=== PATIENT | male | born 1960 | race Caucasian/White ===

== ENCOUNTER 2016-03-22 18:39 | Observation (INO) | payer MEDICAID, OTHER ==
[~2016-03-22] VITALS: Ht 162.6 cm; Wt 90.8 kg
--- NOTE | 2016-03-22 18:55 | ERA ---
ER Documentation Chief Complaint Date/Time DATE: 03/22/16 TIME: 18:54 Chief Complaint pt tried to get out of bed and fainted at home HPI The patient is a 56-year-old male, presenting to the ER because of fainting when he tried to get enough from his bed at about 6:30 PM. He denies headache, blurred vision, diplopia, facial pain, neck, chest pain, dyspnea, abdominal pain , vomiting. He complains of subjective fever this morning, intermittent cough for more than a month. He denies neck pain, chest pain, palpitation. He denies smoking, drinking Past medical history: Hypertension, dyslipidemia, diabetes mellitus Past surgical history: None ROS All systems reviewed and are negative except as per history of present illness. Medications Home Meds Reported Medications Allopurinol* (Allopurinol*) 300 Mg Tablet, 300 MG PO DAILY, TAB 03/22/16 Glipizide* (Glipizide*) 10 Mg Tablet, 10 MG PO AC BREAKFAST DINNER, TAB 03/22/16 Aspirin* (Aspirin* EC) 81 Mg Tablet.dr, 81 MG PO DAILY, TAB 03/22/16 Linagliptin (TRADJENTA) 5 Mg Tablet, 5 MG PO DAILY, TAB 03/22/16 Benazepril Hcl* (Benazepril Hcl*) 40 Mg Tablet, 40 MG PO DAILY, #30 TAB 03/22/16 Gemfibrozil* (Gemfibrozil*) 600 Mg Tablet, 600 MG PO BID, TAB 03/22/16 Allergies Allergies: Coded Allergies: No Known Allergy (Unverified , 03/22/16) Physical Exam Vitals Vital Signs Date Time Temp Pulse Resp B/P Pulse Ox O2 Delivery O2 Flow Rate FiO2 03/22/16 20:11 85 18 130/81 Room Air 03/22/16 18:47 100.1 77 20 64/43 96 Physical Exam Const: No acute distress. Dehydrated Head: Atraumatic. Eyes: Normal Conjunctiva. ENT: Normal External Ears, Nose and Mouth. Bilateral tympanic membranes and oropharynx are within normal limit Neck: Full range of motion. No meningismus. Resp: Clear to auscultation bilaterally. Cardio: Regular rate and rhythm, no murmurs. Abd: Soft, non distended, normal bowel sounds, non tender. Skin: No petechiae or rashes. Back: No midline or flank tenderness. Ext: No cyanosis, or edema. Neur: Awake and alert. No focal deficit Psych: Normal Mood and Affect. Result Diagram: 03/22/16194403/22/161944 Results 24 hrs Laboratory Tests Test 03/22/16 19:45 03/22/16 19:53 Activated Partial Thromboplast Time 26.5Sec Alanine Aminotransferase (ALT/SGPT) 42IU/L Albumin 4.4g/dl Albumin/Globulin Ratio 1.33 Alkaline Phosphatase 91IU/L Anion Gap 19 Aspartate Amino Transf (AST/SGOT) 27IU/L Basophils # 0.010^3/ul Basophils % 0.2% Blood Morphology Comment Blood Urea Nitrogen 21mg/dl Calcium Level 9.1mg/dl Carbon Dioxide Level 25mmol/L Chloride Level 97mmol/L Creatinine 1.25mg/dl Direct Bilirubin 0.00mg/dl Eosinophils # 0.110^3/ul Eosinophils % 1.4% Globulin 3.30g/dl Glucose Level 208mg/dl Hematocrit 40.2% Hemoglobin 13.6g/dl INR International Normalized Ratio 1.02 Indirect Bilirubin 0.2mg/dl Lactic Acid Level 1.5mmol/L Lymphocytes # 1.110^3/ul Lymphocytes % 11.4% Mean Corpuscular Hemoglobin 28.6pg Mean Corpuscular Hemoglobin Concent 33.9g/dl Mean Corpuscular Volume 84.3fl Mean Platelet Volume 8.2fl Monocytes # 0.810^3/ul Monocytes % 8.3% Neutrophils # 7.210^3/ul Neutrophils % 78.7% Nucleated Red Blood Cells # 0.010^3/ul Nucleated Red Blood Cells % 0.0/100WBC Platelet Count 62633^3/UL Potassium Level 4.3mmol/L Prothrombin Time 13.4Sec Prothrombin Time Ratio 1.0 Red Blood Count 4.7710^6/ul Red Cell Distribution Width 13.7% Sodium Level 137mmol/L Total Bilirubin 0.2mg/dl Total Protein 7.7g/dl Troponin I Pending White Blood Count 9.210^3/ul Urine Bilirubin NEGATIVE Urine Clarity CLEAR Urine Color LT. YELLOW Urine Glucose NEGATIVE% Urine Hemoglobin NEGATIVE Urine Ketones NEGATIVE Urine Leukocyte Esterase NEGATIVE Urine Nitrite NEGATIVE Urine Specific [place] 1.020 Urine Total Protein NEGATIVE Urine Urobilinogen 0.2 E.U./dL Urine pH 5.5 Current Medications Medications (Trade) Dose Ordered Sig/Jazmyn Route PRN Reason Start Time Stop Time Status Last Admin Dose Admin Sodium Chloride (NS) 2,790 ml BOLUS OVER 2 HOURS STAT IV* 03/22/16 18:56 03/22/16 19:02 DC 03/22/16 19:18 Procedures/MDM [place] [id number] Radiology Main Line: [phone] DIAGNOSTIC IMAGING REPORT Patient: CHRISTIANA JUNG : 1960 Age: 56 Sex: M MR #: [id number] DOS: 03/22/16 8476 Ordering MD: JOAINE LANTIGUA MD Location: E/R Room/Bed: PROCEDURE: CT Brain without. CLINICAL INDICATION: Syncope. TECHNIQUE: A CT of the brain was performed on multidetector high-resolution CT scanner utilizing axial sections from the skull base through the vertex without contrast. The scan was reviewed in soft tissue brain and high frequency resolution bone algorithm windows. Images were reviewed on a high- resolution PACS workstation. One or more the following does reduction techniques were utilized: Automated exposure control, adjustment of the mA/ or kV according to patient's size, or use of iterative reconstruction technique. The exam CTDI = 44.9 mGy and the DLP = 720.23 mGy-cm. COMPARISON: None available. FINDINGS: The ventricles and sulci are minimal prominent indicative of volume loss. There is no intracranial hemorrhage, mass effect or midline shift. No abnormal intra- axial or extra-axial fluid collections are seen. The justice/white matter differentiation is preserved. There are trace scattered foci of hypoattenuation in the white matter, which are nonspecific in etiology but likely reflect chronic small vessel ischemic changes. There are trace intracranial vascular calcifications consistent with atherosclerosis. The visualized paranasal sinuses demonstrate mild to moderate mucosal thickening mainly in ethmoid air cells. The mastoid air cells are essentially clear. IMPRESSION: 1. No acute intracranial hemorrhage, transcortical infarction or mass effect. 2. Trace intracranial atherosclerosis and chronic small vessel ischemic changes. 3. Minimal generalized cerebral and cerebellar volume loss. 4. Mild to moderate ethmoid air cells disease. RPTAT: HH .Vilma Ayon MD, MD Date Time Electronically viewed and signed by .Vilma Ayon MD, on 03/22/2016 19: 57 .N/ CC: JOANIE LANTIGUA MD EKG: Read by emergency physician Rate/Rhythm: Normal Sinus Rhythm 88 beats per min QRS, ST, T-waves: No ST elevation, no T wave inversion, LVH, inferior Q waves Impression: Abnormal EKG MEDICAL MAKING DECISION: The patient is a 56-year-old male, presenting with acute syncope, most likely due to acute dehydration, acute febrile illness of unclear etiology.. He was treated with normal saline 30 mg/kg IV with good blood pressure response. The differential diagnoses considered include but are not limited to bradyarrhythmia, tachyarrhythmias, aortic outflow obstruction, neurogenic including subarachnoid hemorrhage, orthostatic hypotension and all of its causes, hypoglycemia, dysautonomia, medications, influenza, pneumonia, cystitis Departure Diagnosis: Primary Impression: Syncope Additional Impressions: Acute febrile illness Dehydration Condition: Stable Comments I discussed the findings with the patient. I discussed the patient with the on- call hospitalist who was made aware of the lab, the treatment, the patient condition. The patient is admitted to telemetry at 8:20 PM for 24 hours observation JOANIE LANTIGUA MD Mar 22, 2016 18:55
[2016-03-22] MEDS ORDERED: SODIUM CHLORIDE 0.9% 1L BAG IV* STA (18:56)
[2016-03-22] MEDS ORDERED: GEMF600T60 PO (19:25)
[2016-03-22] MEDS ORDERED: BENA40TA41 PO (19:25)
[2016-03-22] MEDS ORDERED: LINA5TAB PO (19:26)
[2016-03-22] MEDS ORDERED: ASPI-664 PO (19:26)
[2016-03-22] MEDS ORDERED: GLIP-95 PO (19:27)
[2016-03-22] MEDS ORDERED: ALLO300T2 PO (19:27)
--- NOTE | 2016-03-22 19:57 | RADRPT ---
PROCEDURE: CT Brain without. CLINICAL INDICATION: Syncope. TECHNIQUE: A CT of the brain was performed on multidetector high-resolution CT scanner utilizing a xial sections from the skull base through the vertex without contrast. The scan was reviewed in sof t tissue brain and high frequency resolution bone algorithm windows. Images were reviewed on a high -resolution PACS workstation. One or more the following does reduction techniques were utilized: Aut omated exposure control, adjustment of the mA/ or kV according to patient's size, or use of iterativ e reconstruction technique. The exam CTDI = 44.9 mGy and the DLP = 720.23 mGy-cm. COMPARISON: None available. FINDINGS: The ventricles and sulci are minimal prominent indicative of volume loss. There is no intracranial h emorrhage, mass effect or midline shift. No abnormal intra-axial or extra-axial fluid collections a re seen. The justice/white matter differentiation is preserved. There are trace scattered foci of hypoattenuation in the white matter, which are nonspecific in etio logy but likely reflect chronic small vessel ischemic changes. There are trace intracranial vascula r calcifications consistent with atherosclerosis. The visualized paranasal sinuses demonstrate mild to moderate mucosal thickening mainly in ethmoid air cells. The mastoid air cells are essentially c lear. IMPRESSION: 1. No acute intracranial hemorrhage, transcortical infarction or mass effect. 2. Trace intracranial atherosclerosis and chronic small vessel ischemic changes. 3. Minimal generalized cerebral and cerebellar volume loss. 4. Mild to moderate ethmoid air cells disease. RPTAT: HH .Vilma Ayon MD, MD Date Time Electronically viewed and signed by .Vilma Ayon MD, MD on 03/22/2016 19:57 .N/
[2016-03-22 20:07] LABS: BASOPHILS % 0.2 % (0.0-2.0); CONDITION 1; EOSINOPHILS # 0.1 10^3/ul (0.0-0.5); EOSINOPHILS % 1.4 % (0.0-7.0); HEMATOCRIT 40.2 % (42.0-52.0); HEMOGLOBIN 13.6 g/dl (14.0-18.0); LYMPHOCYTES # 1.1 10^3/ul (0.8-2.9); LYMPHOCYTES % 11.4 % (15.0-51.0); MEAN CORPUSCULAR HEMOGLOBIN 28.6 pg (29.0-33.0); MEAN CORPUSCULAR HGB CONC 33.9 g/dl (32.0-37.0); MEAN CORPUSCULAR VOLUME 84.3 fl (82.0-101.0); MEAN PLATELET VOLUME 8.2 fl (7.4-10.4); MONOCYTE # 0.8 10^3/ul (0.3-0.9); MONOCYTES % 8.3 % (0.0-11.0); NEUTROPHIL # 7.2 10^3/ul (1.6-7.5); NEUTROPHILS % 78.7 % (39.0-77.0); PLATELET COUNT 193 10^3/UL (140-440); RED BLOOD COUNT 4.77 10^6/ul (4.70-6.10); RED CELL DISTRIBUTION WIDTH 13.7 % (11.5-14.5); UNCORRECTED WBC 9.2 10^3/ul (4.8-10.8); WHITE BLOOD COUNT 9.2 10^3/ul (4.8-10.8)
[2016-03-22 20:08] LABS: ADD UMIC NO; URINE BILIRUBIN (Dip) NEGATIVE (NEGATIVE); URINE BLOOD (Dip) NEGATIVE (NEGATIVE); URINE COLOR LT. YELLOW (YELLOW); URINE GLUCOSE (Dip) NEGATIVE (NEGATIVE); URINE KETONES (Dip) NEGATIVE (NEGATIVE); URINE LEUKOCYTE ESTERASE (Dip) NEGATIVE (NEGATIVE); URINE NITRITE (Dip) NEGATIVE (NEGATIVE); URINE TOTAL PROTEIN (Dip) NEGATIVE (NEGATIVE); URINE UROBILINOGEN (Dip) 0.2 E.U./dL (0.1-1.0)
[2016-03-22 20:13] LABS: INR 1.02; PROTIME 13.4 Sec (12.2-14.2)
[2016-03-22 20:14] LABS: ALBUMIN 4.4 g/dl (3.3-4.9); CHLORIDE 97 mmol/L (97-110); PARTIAL THROMBOPLASTIN TIME 26.5 Sec (25.0-35.0); POTASSIUM 4.3 mmol/L (3.5-5.1); SODIUM 137 mmol/L (135-144)
[2016-03-22 20:16] LABS: CREATININE 1.25 mg/dl (0.61-1.24)
[2016-03-22 20:17] LABS: ALANINE AMINOTRANSFERASE 42 IU/L (13-69); ALBUMIN/GLOBULIN RATIO 1.33; ALKALINE PHOSPHATASE 91 IU/L (42-121); ANION GAP 19 (8-16); ASPARTATE AMINO TRANSFERASE 27 IU/L (15-46); BILIRUBIN,INDIRECT 0.2 mg/dl (0-1.1); BILIRUBIN,TOTAL 0.2 mg/dl (0.2-1.3); BLOOD UREA NITROGEN 21 mg/dl (7-20); CARBON DIOXIDE 25 mmol/L (21-31); GLUCOSE 208 mg/dl (70-220); TOTAL PROTEIN 7.7 g/dl (6.1-8.1)
[2016-03-22 20:18] LABS: CALCIUM 9.1 mg/dl (8.4-10.2)
[2016-03-22 20:32] LABS: TROPONIN-I < 0.010 ng/ml (0.00-0.12)
[2016-03-23] MEDS ORDERED: ONDANSETRON 4 MG INJ IV PRN (09:00)
[2016-03-23] MEDS ORDERED: NACL 0.9% 3 ML SYG IV SCH (09:00)
[2016-03-23] MEDS ORDERED: ACETAMINOPHEN 325 MG TAB PO PRN (09:00)
[2016-03-23] MEDS ORDERED: morphine 2 MG INJ IV PRN (09:00)
[2016-03-23] MEDS: ALLOPURINOL 300 MG TAB PO SCH (09:40)
[2016-03-23] MEDS: ASPIRIN (EC) 81 MG TAB PO SCH (09:40)
[2016-03-23] MEDS: GEMFIBROZIL 600 MG TAB PO SCH ×2 (09:40→21:45)
[2016-03-23] MEDS: HEPARIN 5,000 UNIT/0.5 ML SYG SC SCH ×2 (09:44→21:59)
--- NOTE | 2016-03-23 10:35 | RADRPT ---
PROCEDURE: US Carotids. CLINICAL INDICATION: Syncope TECHNIQUE: Multiple sonographic of the carotid arteries were obtained utilizing justice scale imaging . Color and Doppler imaging was performed. The images were reviewed on a PACS workstation. COMPARISON: No prior studies are available for comparison. FINDINGS: Location Right Left CCA 93 cm/sec 120 cm/sec Prox ICA 75 cm/sec 48 cm/sec Mid ICA 111 cm/sec 85 cm/sec Dist ICA 72 cm/sec 95 cm/sec ECA 96 cm/sec 92 cm/sec ICA/CCA 1.1 1.1 Antegrade flow is seen within the vertebral arteries bilaterally. Mild noncalcified plaque is presen t at the right carotid bulb. No hemodynamically significant stenosis or occlusion is identified. IMPRESSION: 1. Mild right carotid bulb noncalcified plaque without evidence for hemodynamically significant sten osis - validated velocity measurements with angiographic measurements, velocity criteria are extrapo lated from diameter data as defined by the Society of Radiologists in Ultrasound Consensus Conferenc e Radiology 2003; 229;340-346. This study does indirectly reference the measurement of the distal I CA diameter as the denominator for stenosis measurement. 2. Antegrade flow seen within the vertebral arteries bilaterally. SRU Consensus Conference Criteria for the Diagnosis of Carotid Artery Stenosis Degree of Stenosis, % ICA PSV, cm/sec Plaque Estimate, % ICA/CCA PSV Ratio Normal <125 None <2.0 <50 <125 <50 <2.0 50 69 125-230 >50 2.0-4.0 >70 but less than near occlusion >230 >50 <4.0 Near occlusion High, low, or undetectable Visible Variable Total occlusion Undetectable Visible, no detectable lumen Not applicable *Cartoid artery stenosis: justice-scale and Doppler US diagnosis. Society of Radiologists in Ultrasound Consensus Conference. Radiology 2003; 229: 340-346 RPTAT: JJ .Vlad Hazel MD, MD Date Time Electronically viewed and signed by .Vlad Hazel MD, on 03/23/2016 10:35 .A/
--- NOTE | 2016-03-23 11:03 | RADRPT ---
PROCEDURE: XR Chest. CLINICAL INDICATION: Cough. Sepsis. TECHNIQUE: Single frontal view. COMPARISON: None. FINDINGS: The lungs are clear. The heart size is normal. There is no pleural effusion. There is no pneumothorax. IMPRESSION: 1. Normal chest radiograph. RPTAT: QQ .Jos Lackey MD, Date Time Electronically viewed and signed by .Jos Lackey MD, on 03/23/2016 11:02 .R/
[2016-03-23] MEDS ORDERED: DEXTROSE 50% 50 ML SYRINGE IV PRN ×2 (11:30)
[2016-03-23] MEDS ORDERED: GLUCAGON 1 MG INJ IM PRN (11:30)
[2016-03-23] MEDS ORDERED: GLUCOSE GEL 15 GRAM TUBE BUCCAL PRN (11:30)
[2016-03-23] MEDS ORDERED: GLUCOSE GEL 15 GRAM TUBE PO PRN ×2 (11:30)
[2016-03-23] MEDS ORDERED: hydrALAzine 20 MG INJ IV PRN (12:00)
[2016-03-23] MEDS: INSULIN ASPART [NOVOLOG] 3 ML PEN SC SCH ×3 (12:14→21:53)
[2016-03-23 12:31] VITALS: TEMP 98.6
--- NOTE | 2016-03-23 13:24 | HP ---
DATE OF ADMISSION: 03/22/2016 TIME: 2300. CHIEF COMPLAINT: Loss of consciousness. HISTORY OF PRESENT ILLNESS: The patient is a 56-year-old male with a history of , diabetes and leukemia presented to the emergency department after he experienced loss of consciousness. He said he was at home when he felt lightheaded, and then experienced loss of consciousness which was witnessed by his . She thinks the loss of consciousness was brief. He denied any palpitations , chest pain or shortness of breath, nausea, vomiting, or diarrhea. When he presented to the ER, he was found to be hypotensive with a systolic blood pressure as low as 64. He was given IV fluids an d his blood pressure responded quickly. Head CT was negative. As far as his laboratory results are concerned, his creatinine was 1.25. Otherwise, the rest of his vitals are within acceptable range. REVIEW OF SYSTEMS: A 12-point review was performed and is negative except as mentioned in HPI. PAST MEDICAL HISTORY: As per HPI. SOCIAL HISTORY: Denies history of tobacco and illicit drug use, but drinks alcohol occasionally. ALLERGIES AND HOME MEDICATIONS: Please see medication reconciliation. PHYSICAL EXAMINATION: VITAL SIGNS: Blood pressure 130/65, heart rate 78, respiratory rate 18, temperature 98.7, oxygen sa turation 97% on 2 liters. GENERAL: The patient looks sleepy but arousable, in no acute distress. He is oriented. HEENT: No obvious head deformity. Pupils are reactive to light. Extraocular muscles intact. CARDIOVASCULAR: Regular rate and rhythm. No extra sounds. LUNGS: Clear. ABDOMEN: Soft, nontender, nondistended. Positive bowel sounds. EXTREMITIES: No edema. NEUROLOGIC: No focal deficits. LABORATORY DATA: Creatinine 1.25. IMPRESSION: 1. Syncope secondary to hypotension. 2. Hypotension, likely secondary to dehydration. 3. Presumed acute kidney injury. 4. History of diabetes. 5. History of hypertension. 6. History of . PLAN: The patient will be admitted to telemetry unit. Most likely cause of syncope is hypotension probably from dehydration. Continue to monitor . I will, however, due for syncope workup incl uding a 2D echo, carotid Doppler ultrasounds and I will also trend his troponins and will be monitor ed in the telemetry unit. Cardiology consultation will be placed as needed, but I feel like we can wait and will do so based on his clinical course. Expect is kidney function to it better in the mor nicolle. Will avoid nephrotoxins and renally dose all medications. Nephrology consult and renal ultra sound will be obtained as needed. For his diabetes, he will be placed on insulin and will check an A1c . Further workup and management will be per clinical course. Dictated By: AMIE GONSALEZ/DARSHANA Conf#: [id number] DID#: [id number]
--- NOTE | 2016-03-23 14:16 | RADRPT ---
Echocardiogram Report Patient Name: CHRISTIANA JUNG Gender: Male Date: 1960 Study Date: 23-Mar-2016 [employer] Operator: Robert Abebe RDCS Location: [facility] Ref. Physician: AMIE OCAMPO Quality: Good Procedures: Transthoracic echocardiogram with complete 2D, M-Mode, and doppler examination. Indications: Syncope. 2D/M Mode Doppler Measurement Value Normal Ranges Measurement Value Normal Ranges LVIDd 2D 4.3 3.5 - 5.6 cm AV Peak Esa 1.4 m/sec LVIDs 2D 2.5 2.1 - 4.1 cm AV Peak PG 8.0 mmHg FS 2D 41.6 % LVOT Peak Esa 1.0 m/sec LVPWd 2D 1.1 0.6 - 1.1 cm LVOT Peak PG 4.0 mmHg IVSd 2D 1.1 0.6 - 1.1 cm MV E Peak Esa 0.5 m/sec IVS/LVPW 2D 1.0 MV A Peak Esa 0.7 m/sec AoR Diam 2D 3.1 2.0 - 3.7 cm MV E/A 0.8 LA/Ao 2D 1 0 - 1 MV Decel Time 194 msec EDV 2D 81.2 cm3 MV E/A 0.8 ESV 2D 16.2 cm3 TR Peak Esa 2.3 m/sec LA Dimen 2D 3.6 2.3 - 4.0 cm TR Peak PG 20.0 mmHg RVSP 23.0 mmHg Findings Left Ventricle: Normal left ventricular systolic function. Normal left ventricular cavity size. Mild concentric left ventricular hypertrophy. Ejection fraction is visually estimated at 65 %. Tissue Doppler/Mitral Doppler indices are consistent with impaired relaxation (Stage I diastolic dysfunction). Right Ventricle: Normal right ventricular size. Normal right ventricular systolic function. Left Atrium: The left atrium is normal in size. Right Atrium: The right atrium is normal in size. Mitral Valve: Normal appearance of the mitral valve. Mild mitral annular calcification. Trace mitral regurgitation. Aortic Valve: Normal appearance of the aortic valve. No significant aortic stenosis or insufficiency. Tricuspid Valve: Normal appearance of the tricuspid valve. Estimated peak PA systolic pressure 23 mmHg. There is trace tricuspid regurgitation. Pericardium: Normal pericardium with no significant pericardial effusion. Aorta: Normal aortic root. IVC: Normal size and normal respiratory collapse consistent with normal right atrial pressure. Conclusions 1.Normal left ventricular systolic function. Normal left ventricular cavity size. Mild concentric left ventricular hypertrophy. Ejection fraction is visually estimated at 65 %. Tissue Doppler/Mitral Doppler indices are consistent with impaired relaxation (Stage I diastolic dysfunction). 2.Normal right ventricular size. Normal right ventricular systolic function. 3.The left atrium is normal in size. 4.The right atrium is normal in size. 5.No significant valvular stenosis or regurgitation seen. 6.Normal pericardium with no significant pericardial effusion. Electronically Signed By: Reggie Rangel 23-Mar-2016 14:15:35 -0800 Patient Name: CHRISTIANA JUNG Study Date: 23-Mar-2016 [id number]
[2016-03-23 15:19] VITALS: BP 166/72; PULSE 81; RESP 18
[2016-03-23 15:26] VITALS: Ht 162.6 cm; Wt 90.8 kg
[2016-03-23 16:44] VITALS: PULSE 79
--- NOTE | 2016-03-23 17:09 | PN ---
DATE: 03/23/2016 SUBJECTIVE: The patient denies any dizziness or chest pain. OBJECTIVE VITAL SIGNS: Stable. GENERAL: Patient sitting up in bed, answering questions, in no acute distress. HEENT: Pupils equal, round, reactive to light. Extraocular muscles intact. NECK: Supple, no thyromegaly. LUNGS: Clear to auscultation bilaterally. CARDIOVASCULAR: S1, S2 heard. No rubs, gallops. ABDOMEN: Soft, nontender, nondistended. Normal bowel sounds, no rebound or guarding. MUSCULOSKELETAL: No lower extremity edema bilaterally. NEUROLOGIC: No focal deficits. LABORATORY DATA: There is no new CBC or BMP from this morning. ASSESSMENT AND PLAN: A 56-year-old male with history of diabetes and leukemia presents with syncope and hypotension. 1. Syncope, most likely secondary to hypotension. Blood pressure is improved. The patient has had no more syncopal events since he has been here in the hospital after getting IV fluids. Follow up echocardiogram and carotid Doppler studies. Continue to trend his troponins as well. So far 1 trop onin is negative. 2. Acute renal insufficiency. Again, continue IV fluids and monitor basic metabolic panel in the [facility]. 3. Diabetes. Follow up A1c. Continue sliding scale insulin. 4. History of hypertension. Again, the patient was hypotensive. Hold blood pressure medicines for now. 5. Gastrointestinal prophylaxis. Add PPI. 6. Deep venous thrombosis prophylaxis with heparin subq. 7. Acute leukemia. The patient is currently on allopurinol. Continue to monitor for now. Dictated By: ANGUS SU Conf#: [id number] DID#: [id number]
[2016-03-23] MEDS: GUAIFENESIN 20 MG/ML 5ML CUP PO PRN ×2 (17:22→21:54)
[2016-03-23 20:00] VITALS: BP 155/75; PULSE 86; RESP 20
[2016-03-23 20:18] VITALS: PULSE 104
[2016-03-23 22:07] VITALS: BP 187/95; PULSE 77; RESP 20
[2016-03-24] VITALS (7 sets, daily range): BP systolic 107–148; BP diastolic 68–83; PULSE 82–102; RESP 18–20
[2016-03-24 07:12] LABS: BASOPHILS % 0.1 % (0.0-2.0); EOSINOPHILS # 0.1 10^3/ul (0.0-0.5); EOSINOPHILS % 1.3 % (0.0-7.0); HEMATOCRIT 37.9 % (42.0-52.0); HEMOGLOBIN 12.9 g/dl (14.0-18.0); LYMPHOCYTES # 1.2 10^3/ul (0.8-2.9); LYMPHOCYTES % 19.6 % (15.0-51.0); MEAN CORPUSCULAR HEMOGLOBIN 28.9 pg (29.0-33.0); MEAN CORPUSCULAR HGB CONC 34.1 g/dl (32.0-37.0); MEAN CORPUSCULAR VOLUME 84.8 fl (82.0-101.0); MEAN PLATELET VOLUME 8.2 fl (7.4-10.4); MONOCYTE # 0.7 10^3/ul (0.3-0.9); MONOCYTES % 11.6 % (0.0-11.0); NEUTROPHILS % 67.4 % (39.0-77.0); PLATELET COUNT 187 10^3/UL (140-440); RED BLOOD COUNT 4.46 10^6/ul (4.70-6.10); RED CELL DISTRIBUTION WIDTH 13.7 % (11.5-14.5)
[2016-03-24 07:17] LABS: CONDITION 1
[2016-03-24 07:43] LABS: ALBUMIN 3.8 g/dl (3.3-4.9)
[2016-03-24 07:46] LABS: BILIRUBIN,INDIRECT 0.3 mg/dl (0-1.1); BILIRUBIN,TOTAL 0.3 mg/dl (0.2-1.3); CREATININE 0.9 mg/dl (0.61-1.24)
[2016-03-24 07:47] LABS: ALBUMIN/GLOBULIN RATIO 1.26; CALCIUM 8.8 mg/dl (8.4-10.2); MAGNESIUM 1.7 mg/dl (1.7-2.5); TOTAL PROTEIN 6.8 g/dl (6.1-8.1)
[2016-03-24 07:48] LABS: CHOL/HDL RATIO 5.1 RATIO
[2016-03-24] MEDS: INSULIN ASPART [NOVOLOG] 3 ML PEN SC SCH (07:51)
[2016-03-24] MEDS: ALLOPURINOL 300 MG TAB PO SCH (08:04)
[2016-03-24] MEDS: GEMFIBROZIL 600 MG TAB PO SCH (08:04)
[2016-03-24] MEDS: ASPIRIN (EC) 81 MG TAB PO SCH (08:04)
[2016-03-24] MEDS: HEPARIN 5,000 UNIT/0.5 ML SYG SC SCH (08:05)
--- NOTE | 2016-03-24 10:14 | PDOCDIS ---
Discharge Instructions CONDITION Patient Condition: Stable HOME CARE INSTRUCTIONS: Special Diet: carb controlled diet ACTIVITY: Activity Restrictions: Slowly Increase Activity FOLLOW UP/APPOINTMENTS Appointments Please see your doctor in the clinic in 1 week, and take your medications as prescribed. ANGUS SHAHID Mar 24, 2016 10:14
--- NOTE | 2016-03-24 10:59 | DS ---
DATE OF ADMISSION: 03/23/2016 DATE OF DISCHARGE: 03/24/2016 HOSPITAL COURSE: This is a 56-year-old male originally admitted on 03/23/2014 being discharged home on 03/24/2014. Patient came in with loss of consciousness. He syncopized for about 5 seconds. He was found to be hypotensive and that was thought to be the cause of the patient's syncope. He did have imaging study performed. Head CT was performed, showed no acute intracranial hemorrhages, infa rctions or mass effect. The patient did have some mild renal insufficiency as well. He was admitte d. His SANTY inhibitor medicine was held and he was given IV fluids. His A1c was checked. It was tarik vated at 9.7. He was placed on sliding scale insulin. He did rule out for acute coronary syndrome as his troponins were negative x3. Over the course of his hospital stay, he had no more syncopal ev ents. His blood pressure was stable after IV fluids. He was able to ambulate and tolerate a p.o. d iet. We also performed a carotid Doppler study that showed no evidence of any hemodynamically signi ficant stenosis bilaterally, although there was some mild noncalcified plaque in the right carotid b ulb, and again, patient will be discharged home today in improved condition. DISCHARGE MEDICATIONS: He will be sent with the following medications. 1. He will continue allopurinol 300 mg daily. 2. Aspirin 81 mg daily. 3. Benazepril 40 mg daily. 4. Gemfibrozil 600 mg b.i.d. 5. Glipizide 10 mg twice a day. 6. Tradjenta 5 mg daily. He will need to follow up with primary care doctor in the clinic in the next 1 to 2 weeks. FINAL DIAGNOSES: 1. Syncope, most likely secondary to hypotension from dehydration, now improved. 2. Acute renal insufficiency, prerenal cause now improved after IV fluids. 3. Diabetes type 2, uncontrolled, but on home Tradjenta and glipizide. 4. Essential hypertension, controlled. 5. High low-cholesterol on Lopid. Time spent discharging patient 40 minutes. Dictated By: ANGUS SU Conf#: [id number] DID#: [id number]
== END 2016-03-24 11:00 | disposition home or self-care (01) ==
LOC: E/R 18:39 → TEL 03-23 15:20
PROVIDERS: ADMIT Internal Medicine; ATTEND Internal Medicine
DX: R55 Syncope and collapse (principal); N28.9 Disorder of kidney and ureter, unspecified; E11.65 Type 2 diabetes mellitus with hyperglycemia; Z79.84 Long term (current) use of oral hypoglycemic drugs; I10 Essential (primary) hypertension; E78.5 Hyperlipidemia, unspecified; E78.00 Pure hypercholesterolemia, unspecified; Z79.82 Long term (current) use of aspirin
CPT/HCPCS: 36415; 70450; 71010; 80053; 80061; 81003; 82962; 83036; 83605; 83735; 84484; 85025; 85610; 85730; 87040; 87086; 93005; 93306; 93880; 96372; J0360; J1644; J1815; J7030; Z7500; Z7502; Z7610; G0378